=== PATIENT | male | born 1970 | race Caucasian/White ===

== ENCOUNTER → 2024-07-12 | Outpatient (CLI) | payer MEDICAID, SELFPAY ==
[2024-07-12 10:49] LABS: Anion Gap 4 (5-15); BUN 24 mg/dL (7-18); BUN/Creat Ratio 34.8 RATIO (10-20); Calcium,Total 8.9 mg/dL (8.5-10.1); Chloride 110 mmol/L (98-107); Creatinine, Serum 0.69 mg/dL (0.70-1.30); EST Glomerular Filtration Rate 128 mL/min (>60); Est Glom Filt Rate - Afr Amer 155 mL/min (>60); Glucose 106 mg/dL (74-106); PSA,Total - Annual Screen 0.68 ng/mL (0.00-4.00); Potassium 3.3 mmol/L (3.5-5.1); Sodium Level 142 mmol/L (136-145)
== END | disposition home or self-care (01) ==
LOC: LAB 09:46
PROVIDERS: PCP Family Medicine; Referring Provider Nurse Practitioner; Visit Provider Nurse Practitioner
DX: Z12.5 Encounter for screening for malignant neoplasm of prostate (principal); R33.9 Retention of urine, unspecified
CPT/HCPCS: 84153